=== PATIENT | female | born 1990 | race African-American/Black ===

== ENCOUNTER 2019-05-28 19:30 | Emergency (ER) | payer MEDICAID, SELFPAY ==
[2019-05-28] MEDS ORDERED: Ibuprofen 200 MG TAB ONE (20:30)
== END 2019-05-28 20:33 | disposition home or self-care (01) ==
LOC: ERS 19:30
DX: S46.911A Strain of unspecified muscle, fascia and tendon at shoulder and upper arm level, right arm, initial encounter (principal); S00.83XA Contusion of other part of head, initial encounter; M25.511 Pain in right shoulder; F17.210 Nicotine dependence, cigarettes, uncomplicated; V49.9XXA Car occupant (driver) (passenger) injured in unspecified traffic accident, initial encounter